=== PATIENT | female | born 1955 | race Caucasian/White ===

== ENCOUNTER → 2017-07-04 09:42 | Outpatient (CLI) | payer OTHER, SELFPAY ==
--- NOTE | 2017-07-04 09:52 | FL_ITS ---
EXAM: Barium swallow/esophagram. INDICATION: Dysphasia with liquids ORDERING PHYSICIAN: Chang Monk MD PATIENT AGE: 62 years COMPARISON: None TECHNIQUE: In the upright position the patient was observed to swallow barium in both the AP and lateral view. The cervical esophagus was examined under fluoroscopy with images obtained. The patient was then placed prone in the right anterior oblique position and was observed to swallow barium with Valsalva technique . FLUOROSCOPY TIME: 1 minute 43 seconds FINDINGS: There was no evidence of aspiration. There was normal peristalsis. No filling defects or mucosal abnormalities. No masses or strictures. There was spasm of the distal esophagus at the gastroesophageal junction. This did subside during the exam was rather prominent at the first of the exam IMPRESSION: Spasm of the esophagus at the gastroesophageal junction otherwise negative barium swallow
== END ==
PROVIDERS: Family Provider Internal Medicine Adolescent Medicine; PCP Internal Medicine Adolescent Medicine; Visit Provider Internal Medicine
DX: R13.10 Dysphagia, unspecified (principal); R00.2 Palpitations; I34.0 Nonrheumatic mitral (valve) insufficiency; K21.9 Gastro-esophageal reflux disease without esophagitis; R94.31 Abnormal electrocardiogram [ECG] [EKG]
CPT/HCPCS: 74220

== ENCOUNTER → 2017-07-18 11:12 | Outpatient (CLI) | payer OTHER, SELFPAY | PROVIDERS: PCP Internal Medicine Adolescent Medicine; Visit Provider Podiatrist | DX: M79.672 Pain in left foot (principal); M79.671 Pain in right foot ==

== ENCOUNTER → 2017-08-11 06:30 | Outpatient (CLI) | payer OTHER, SELFPAY ==
--- NOTE | 2017-08-11 06:34 | NM_ITS ---
History and Indications: Shortness of breath, palpitations, family history and abnormal EKG Procedure: Patient exercised on Patrick protocol 10 minutes and 30 seconds, resting heart rate was 72 bpm resting blood pressure 156/85, with exercise maximum heart rate achieved was 1 54 bpm which is equal to 86% of the maximum predicted heart rate and a blood pressure was 170/80. Patient has good exercise capacity achieved 12.2mets of workload on treadmill, the blood pressure response to exercise was adequate. Electrocardiogram: Resting electrocardiogram showed sinus rhythm premature ventricular complexes, with exercise there is less than 1.[address] segment depression noted from the baseline EKG, frequent premature ventricular complexes were present throughout this study. The EKG portion of the exercise Myoview is negative for ischemia. Cardiac stress and resting SPECT images: Cardiac stress and rest SPECT images were obtained using technetium 99 Myoview 31.5 mCi at stress gated 10.7 mCi at rest, gated SPECT further analysis of segmental wall motion and calculation of the ejection fraction also done. Cardiac stress and rest SPECT images show uniform myocardial activity without any segmental perfusion abnormality, computer derived ejection fraction is over 65% with no obvious regional wall motion abnormality, right ventricle is normal size and contractility. Conclusion: 1. The EKG portion of the exercise Myoview is negative for ischemia, patient has good exercise capacity [id number] mets of workload on treadmill, the blood pressure response to exercise was adequate, there was no exercise-induced chest discomfort. 2. No obvious scintigraphic evidence of reversible ischemia seen, computer derived ejection fraction is over 65% with no obvious regional wall motion abnormality, right ventricle is normal size and contractility.
--- NOTE | 2017-08-11 12:04 | HMH.ITSHM ---
asa omeprazole bisoprolol
== END ==
PROVIDERS: Family Provider Internal Medicine Adolescent Medicine; PCP Internal Medicine Adolescent Medicine; Visit Provider Physician Assistant
DX: R07.9 Chest pain, unspecified (principal); R06.00 Dyspnea, unspecified; R00.2 Palpitations
CPT/HCPCS: 78452; 93017; A9502

== ENCOUNTER → 2018-02-13 14:14 | Outpatient (CLI) | payer OTHER, SELFPAY ==
--- NOTE | 2018-02-13 14:17 | CT_ITS ---
CT heart w calcium score INDICATION: ITS.REASON: chest pain, dyspnea, abnormal ekg ORDERING PHYSICIAN: Chang Monk MD PATIENT AGE: 62 years COMPARISON: None TECHNIQUE: Axial images are obtained without contrast. Sagittal and coronal reformatted images are reviewed as well. All CT scans at the facility use one or more dose reduction, viz: automated exposure control, ma/kV adjustment per patient size (including targeted exams where dose is matched to indication, i.e. head), or iterative reconstruction technique. FINDINGS: Coronary artery calcium score 0 with no identifiable atherosclerotic plaque with a very low cardiovascular disease risk. Incidental note made of a 7.1 x 5.7 cm left renal cyst. There is mild thickening of distal esophagus which may be seen with reflux esophagitis IMPRESSION: Coronary artery calcium score of 0
--- NOTE | 2018-02-13 14:17 | CA_ITS ---
PROCEDURE: 2-D M-mode and color Doppler study INDICATIONS FOR THE TEST: Chest pain + COPD Heart Murmur Tobacco Smoking Palpitations+ Fatigue Syncope Edema Hypertension Diabetes Mellitus Rheumatic Fever SOB+HARPER Obesity Hyperlipidemia Family History HD Additional History PATIENT INFORMATION HEIGHT: 63 WEIGHT:105 GENDER: Female B/P:150/74 2-D/M-MODE INTERPRETATION: 2-D MEASUREMENTS OBSERVED VALUES IN CMS Right Ventricular Dimension (RVDd) 2.5 Interventricular Septum (Thickness)(IVsd) 0.7 Left Ventricular Internal Dimensions(LVIDd) 4.9 Left Ventricular Posterior Wall (Thickness)(LVPWd) 0.7 Aortic Root 2.9 Aortic Cusp Separation 1.8 Left Atrial Dimensions (LAD) 3.8 2D 1. Left atrium is normal size, left ventricle is normal size, there is no concentric left ventricular hypertrophy, visually estimated ejection fraction 55% with no obvious regional wall motion abnormality. 2. The right atrium and right ventricle are normal size and contractility. 3. The aortic valve is minimally thickened and fibrosed. 4. The mitral and tricuspid valvular grossly normal. 5. The pulmonic valve is poorly visualized. 6. There is small pericardial effusion noted. DOPPLER INTERROGATION: Doppler interrogation of the aortic, mitral and tricuspid valvular presence of mild mitral and tricuspid regurgitation, tricuspid regurgitation jet velocity is insufficient for calculation of the right ventricular systolic pressure, diastolic parameters are inconclusive. CONCLUSION: 1. Normal left ventricular size, preserved left ventricular systolic function, visually estimated ejection fraction 55% with no obvious regional wall motion abnormality, diastolic parameters are inconclusive. 2. Mild mitral and tricuspid regurgitation 3. Small pericardial effusion noted
== END ==
PROVIDERS: Family Provider Internal Medicine Adolescent Medicine; PCP Internal Medicine Adolescent Medicine; Visit Provider Internal Medicine
DX: R07.89 Other chest pain (principal); R06.09 Other forms of dyspnea; R94.31 Abnormal electrocardiogram [ECG] [EKG]; R00.2 Palpitations; I34.0 Nonrheumatic mitral (valve) insufficiency
CPT/HCPCS: 75571; 93306

== ENCOUNTER → 2018-09-26 15:42 | Outpatient (CLI) | payer MEDICARE, SELFPAY ==
--- NOTE | 2018-09-26 15:48 | XR_ITS ---
XR chest 2V HISTORY: ITS.REASON: SHORTNESS OF BREATH ORDERING PHYSICIAN: Stacy Stacy MD PATIENT AGE: 63 years COMPARISON: Portable upright chest 04/29/2017 FINDINGS: The cardiomediastinal silhouette and pulmonary vascularity are within normal limits. Mild emphysematous changes seen with hyperexpansion lung blandon and mild flattening of hemidiaphragms. There is a subtle ill-defined opacity in the left apex is somewhat obscured by overlying clavicle in the posterior aspects of the left third and fourth ribs. This could be a focal pneumonic infiltrate or developing mass.. There are small calcified subcarinal nodes. Recommend the patient be scheduled for CT scan of the chest without and with IV contrast are better evaluation. There is no pleural fluid. IMPRESSION: Mild or borderline COPD, somewhat suspicious left apical opacity as described. Suggest follow-up CT scan
== END ==
PROVIDERS: PCP Family Medicine; Visit Provider Family Medicine
DX: R06.02 Shortness of breath (principal); I49.9 Cardiac arrhythmia, unspecified
CPT/HCPCS: 71046; 93005

== ENCOUNTER → 2018-10-01 16:02 | Outpatient (CLI) | payer MEDICARE, SELFPAY | PROVIDERS: PCP Family Medicine; Visit Provider Family Medicine | DX: R00.2 Palpitations (principal) | CPT/HCPCS: 93225; 93226 ==

== ENCOUNTER → 2018-10-05 09:36 | Outpatient (CLI) | payer MEDICARE, SELFPAY ==
--- NOTE | 2018-10-05 09:56 | CT_ITS ---
CT chest wo/w con HISTORY: Shortness of breath, left apical mass, abnormal chest x-ray ITS.REASON: SOA, ABN CXR ORDERING PHYSICIAN: Stacy Stacy MD PATIENT AGE: 63 years COMPARISON: 09/26/2018 Technique: Axial images obtained following the administration of 75 mL of Optiray 350 . Sagittal, and coronal reformatted images are also generated and reviewed. All CT scans at the facility use one or more dose reduction, viz: automated exposure control, ma/kV adjustment per patient size (including targeted exams where dose is matched to indication, i.e. head), or iterative reconstruction technique. FINDINGS: There is mild pericardial thickening measuring up to 11 mm suggesting small pericardial effusion. There is normal heart size. No evidence of aortic aneurysm or dissection. No central pulmonary embolus. There is a 2 x 1.5 x 1.7 cm solid nodule in the left apex with some spiculation of the margins with some spiculations extending to the pleural surface in the left upper lobe posteriorly. This corresponds to the radiographic abnormality and is suspicious for neoplasm. There is an additional less well-defined nodular density left upper lobe anteriorly at 7 x 3 mm. There is also an 11 x 9 mm noncalcified nodule left suprahilar region which could also be related to neoplasm. There is a 5 mm noncalcified nodule in the left upper lobe inferiorly In the right upper lobe there is a 5 mm noncalcified nodule in the subpleural region. A 4 mm noncalcified nodule is present in the right apex. No central strikingly lesions are evident. There is thickening of the distal esophagus nonspecific but may be seen with esophagitis. No effusions are evident. Upper abdominal images show a 7.4 x 5.7 cm left renal cyst. There is a rather well-circumscribed blastic focus within the left T12 vertebral body at 13 mm which is indeterminate. There is a small lucent lesion involving the T1 vertebral body on the right measuring 4 mm. IMPRESSION: 1. 2 cm left apical nodule suspicious for neoplasm. 2. 11 x 9 mm nodule in the left suprahilar region which could also be neoplastic in nature. These nodules could be primary or metastatic carcinoma 3. No mediastinal or hilar adenopathy. 4. Sclerotic lesion of the T12 vertebral body and a 4 mm lucent lesion of T1. These are indeterminate for neoplasm 5. Small pericardial effusion 6. Other noncalcified pulmonary nodules in both lungs which are too small to categorize and may be followed with CT
[2018-10-05 10:12] LABS: Blood Urea Nitrogen 9 mg/dL (7-18); Creatinine,Serum 0.92 mg/dL (0.55-1.02); Estimated Glomerular Filt Rate 62 ml/min (>60); GFR (African American) 75 ML/MIN (>60)
== END ==
PROVIDERS: PCP Family Medicine; Visit Provider Family Medicine
DX: R93.89 Abnormal findings on diagnostic imaging of other specified body structures (principal)
CPT/HCPCS: 36415; 71270; 82565; 84520

== ENCOUNTER → 2018-11-28 09:15 | Outpatient (CLI) | payer MEDICARE, SELFPAY ==
[2018-11-28 09:49] LABS: Blood Urea Nitrogen 12 mg/dL (7-18); Creatinine,Serum 0.88 mg/dL (0.55-1.02); Estimated Glomerular Filt Rate 65 ml/min (>60); GFR (African American) 79 ML/MIN (>60)
--- NOTE | 2018-11-28 10:03 | MR_ITS ---
MR head/brain wo/w con HISTORY: ITS.REASON: LUNG ADENOCARCINOMA, METASTASIS ORDERING PHYSICIAN: Eddie Oliver PATIENT AGE: 63 years Comparison: None TECHNIQUE: Standard multiplanar multiecho sequences are performed without and with 9 mL's ProHance. FINDINGS: There is an enhancing 8 mm nodule within the right occipital lobe centrally for metastatic lesion. There is only minimal amount of surrounding edema.. There is a tiny focus of enhancement noted in the left frontal area on image #21 series 9. This could be due to partial volume averaging from a cortical vein or a small true enhancing cortical lesion. There is no edema around this area. No other areas of abnormal enhancement are evident. No midline shift or mass effect. No acute intracranial hemorrhage or hydrocephalus. There are few nonspecific T2 white matter hyperintensities. The cerebellopontine angles, cerebellum, and brainstem are unremarkable. Pituitary, optic chiasm, corpus callosum, and craniocervical junction are unremarkable. There is a small amount fluid in left mastoid sinus. No paranasal sinus air-fluid level. IMPRESSION: 1. 8 mm enhancing nodule in the right occipital lobe suspicious for metastatic focus. No significant mass effect. Only minimal amount of edema 2. There is a tiny 2 mm area of possible enhancement in the left frontal lobe. This could be due to partial white matter region artifact. Cannot exclude a very small enhancing metastatic focus.
== END ==
PROVIDERS: Visit Provider Internal Medicine Pulmonary Disease
DX: C34.90 Malignant neoplasm of unspecified part of unspecified bronchus or lung (principal); Z03.89 Encounter for observation for other suspected diseases and conditions ruled out
CPT/HCPCS: 36415; 70553; 82565; 84520; A9576

== ENCOUNTER → 2019-04-19 17:04 | Outpatient (CLI) | payer MEDICARE, SELFPAY ==
--- NOTE | 2019-04-19 | XR_ITS ---
PROCEDURE: XR RIBS RT MIN 3V W CXR1V CLINICAL INDICATION: RIB PAIN RT. SIDE Right-sided rib pain COMPARISON: CXR1 CHEST-PORTABLE from 04/29/2017 CXR2V XR chest 2V from 09/26/[address] chest wo/w con from 10/05/2018 FINDINGS: There is cardiomegaly without failure. Chronic interstitial changes are present with a small right pleural effusion. Left apical mass is noted and appears slightly larger compared to 10/05/2018 with some lobular contour having developed along the superior medial margin. Chest CT may confirm. The nodule measures 2 cm. The superior medial nodular opacity measures 1 cm and could be due to overlying sclerotic lesion of the 1st rib. There is a nondisplaced fracture of the right 8th rib with some overlying callus formation. IMPRESSION: 1. Left upper lobe mass which appears slightly larger suspicious for neoplasm. 2. Healing right 8th rib fracture. 3. Cardiomegaly with interstitial changes and small right effusion Dictated by: Steven Love MD 04/20/2019 07:21 Electronically signed by Steven Love MD in [facility] 04/20/2019 07:21
== END ==
PROVIDERS: PCP Family Medicine; Visit Provider Family Medicine
DX: R07.81 Pleurodynia (principal)
CPT/HCPCS: 71101

== ENCOUNTER → 2019-05-27 13:32 | Outpatient (CLI) | payer MEDICARE, SELFPAY ==
--- NOTE | 2019-05-27 13:38 | XR_ITS ---
PROCEDURE: XR SHOULDER LT MIN 2V CLINICAL INDICATION: LT SHOULDER PAIN History lung cancer COMPARISON: CHESTWW CT chest wo/w con from 10/05/2018 FINDINGS: No fracture or dislocation. No lytic or blastic change. There are mild osteoarthritic changes of the acromioclavicular joint and there is some mild subacromial stenosis with minimal osteoarthritic change of the glenohumeral joint. Incidental note is made the left apical lesion as previously described measuring approximately 2.7 cm. No adjacent bony destructive process is evident IMPRESSION: 1. 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 2. Left apical mass Dictated by: Steven Love MD 05/27/2019 14:38 Electronically signed by Steven Love MD in [facility] 05/27/2019 14:38
== END ==
PROVIDERS: PCP Family Medicine; Visit Provider Family Medicine
DX: M25.512 Pain in left shoulder (principal)
CPT/HCPCS: 73030

== ENCOUNTER → 2019-06-20 14:50 | Outpatient (CLI) | payer MEDICARE, SELFPAY ==
--- NOTE | 2019-06-20 14:54 | CA_ITS ---
APPROVED REPORT Right Lower Extremity Venous Study for DVT. [employer]: Jolene Dewitt, DARIOT Indications Lower Extremity Edema: Right Pt has lung ca Vein Imaging CFV (R): compressive, spontaneous, phasic, augmentation FEM (R): compressive, spontaneous, phasic, augmentation POP (R): Thrombus, Non-Compressible PTV (R): Compressible Peroneals (R):Thrombus, Partially Compressible GAS (R): Thrombus, Non-Compressible Findings Study suggests DVT of the popliteal, proximal peroneal and the gastrocnemius vein of the right lower extremity. Study suggests no evidence of SVT of the right lower extremity. Conclusion Study suggests DVT of the popliteal, proximal peroneal and the gastrocnemius vein of the right lower extremity. Study suggests no evidence of SVT of the right lower extremity. Critical Notification Critical Value: Yes Physician Notified Date: 06/20/2019 Time: 15:25 Physician Name: Dr Borrero Electronically signed by : Rojas Ayala, 06/20/2019 16:19:24
== END ==
PROVIDERS: PCP Family Medicine; Visit Provider Family Medicine
DX: M79.604 Pain in right leg (principal)
CPT/HCPCS: 93971

== ENCOUNTER → 2019-07-19 15:39 | Outpatient (CLI) | payer MEDICARE, SELFPAY ==
--- NOTE | 2019-07-19 15:43 | XR_ITS ---
PROCEDURE: XR CHEST 2V CLINICAL HISTORY: NEOPLASM LT LUNG COMPARISON: CXR1 CHEST-PORTABLE from 04/29/2017 CXR2V XR chest 2V from 09/26/[address] chest wo/w con from 10/05/2018 XR RIBS RT MIN 3V W CXR1V from 04/19/2019 FINDINGS: There is borderline cardiomegaly with an atherosclerotic aorta without active CHF. There is linear density consistent with scarring in the left apex. A subtle 1.1 x 1.5 centimeter opacity persists in the left apex. A more discretely seen pulmonary nodule was noted on the previous exam likely correlating with the described known neoplasm. Today's finding may represent residual neoplasm/scarring. There is no acute infiltrate. There is relative sclerosis of the left lateral aspect of L1 unchanged from the previous exam. Sclerotic metastasis is not excluded. There is some radiolucency associated with the posterior right 8th rib. A destructive rib lesion is not excluded. Osteolysis associated with previous rib fracture described on exam 04/19/2019 is also possibility. Callus associated with healed fracture of the 9th rib is apparent. . IMPRESSION: No acute cardiopulmonary findings. Subtle opacity left apex which may represent residual neoplasm/scarring. New osteolytic appearance of posterior right 8th rib. Destructive metastatic lesion would be in the differential diagnosis in this patient. Consider further evaluation of this patient via postcontrast CT of the chest and radionuclide bone scan. Dictated by: Gagandeep Thomas 07/20/2019 11:06 Electronically signed by Gagandeep Thomas in [facility] 07/20/2019 11:06
== END ==
PROVIDERS: PCP Family Medicine; Visit Provider Family Medicine
DX: C34.92 Malignant neoplasm of unspecified part of left bronchus or lung (principal)
CPT/HCPCS: 71046

== ENCOUNTER → 2020-08-25 15:05 | Outpatient (CLI) | payer MEDICARE, SELFPAY ==
--- NOTE | 2020-08-25 15:12 | XR_ITS ---
PROCEDURE: XR CHEST 2V CLINICAL HISTORY: COUGH History of lung cancer COMPARISON: CR CXR2V XR chest 2V from 09/26/[address] chest wo/w con from 10/05/2018 CR XR RIBS RT MIN 3V W CXR1V from 04/19/2019 CR XR CHEST 2V from 07/19/2019 FINDINGS: There is dense consolidation in the right lower lobe consistent with pneumonia. Left lower lobe pneumonia also noted but not quite as dense as the right lower lobe. There is a 2.3 cm left apical mass consistent with neoplasm. Infiltrate is also present in the right suprahilar region. Multiple sclerotic foci are present at L1 T9 and right 6 and 8th ribs consistent with metastatic disease. May be a small sclerotic focus in the left humeral head is well. IMPRESSION: Severe bilateral lower lobe pneumonia right greater than left with left apical mass consistent with neoplasm. Bony metastasis. Dictated by: Steven Love MD 08/25/2020 15:39 Steven Love MD in [facility] 08/25/2020 15:39
== END ==
PROVIDERS: PCP Nurse Practitioner; Visit Provider Nurse Practitioner
DX: R05 Cough (principal)
CPT/HCPCS: 71046